=== PATIENT | male | born 1990 | race Caucasian/White ===

== ENCOUNTER 2021-11-19 20:55 | Emergency (ER) | payer BC ==
[2021-11-19] MEDS ORDERED: Acetaminophen/oxyCODONE 325-5 MG Tab PO ONE (20:56)
[2021-11-19] MEDS ORDERED: Ketorolac 30 MG/ML SDV IM ONE (21:15)
== END 2021-11-19 22:10 | disposition home or self-care (01) ==
LOC: FB.ED 20:55
DX: N20.1 Calculus of ureter (principal)
CPT/HCPCS: 81001; 96372; 99284; A9270; J1885